=== PATIENT | female | born 1980 | race Caucasian/White ===

== ENCOUNTER 2016-08-21 19:24 | Inpatient (IN) | payer MEDICAID ==
[~2016-08-21] VITALS: Ht 148.6 cm; Wt 68.2 kg
[~2016-08-21 19:24] MED LIST: FERR27TA PO; PREN1TAB12 PO
[2016-08-21] MEDS ORDERED: CARBOPROST 250 MCG INJ IM PRN (22:30)
[2016-08-21] MEDS ORDERED: METHYLERGONOVINE 0.2 MG INJ IM PRN (22:30)
[2016-08-21] MEDS ORDERED: MISOPROSTOL 200 MCG TAB PR PRN (22:30)
[2016-08-21] MEDS ORDERED: OXYTOCIN 30 UNITS/LR 500 ML IV SCH (22:30)
[2016-08-21] MEDS ORDERED: BUTORPHANOL 2 MG INJ IV PRN (22:30)
[2016-08-21] MEDS ORDERED: OXYTOCIN 30 UNITS/LR 500 ML IV PRN (22:30)
[2016-08-21] MEDS ORDERED: LIDOCAINE 1% (MPF) 30 ML INJ INJ PRN (22:30)
[2016-08-21] MEDS ORDERED: IBUPROFEN 600 MG TAB PO PRN (22:30)
--- NOTE | 2016-08-21 22:37 | TRIAGE ---
OB Triage Datetime Report Generated by CPN: 08/21/2016 22:37 Datetime: 08/21/2016 22:16 Stage of : OB Triage Vaginal Exam Dilatation (cms): 4.0 Effacement (%): 60 Station: -3 Exam By: E Miguel Membrane Status: Intact Vaginal Bleeding: Small Cervix, Consistency: Soft Cervix, Position: Posterior Presentation 'A': Cephalic Datetime: 08/21/2016 22:13 Stage of : OB Triage Monitor Mode: External Resting Tone [place]: Relaxed Heart Rate FHR Baseline Rate: 140 Monitor Mode: External US Pain Assessment Pain Scale: 5 Pain Presence: Intermittent Pain Type: Contraction Pain Location: Abdomen Datetime: 08/21/2016 20:17 Stage of : OB Triage Labor Evaluation Frequency: 10 Monitor Mode: External Quality: Moderate Pattern: Normal: <= 5 Contractions in 10 Minutes Intensity IUP (mmHg): 60 Resting Tone [place]: Relaxed Heart Rate FHR Baseline Rate: 135 Monitor Mode: External US FHR Baseline Changes: No Baseline Change Variability: Moderate 6-25 bpm Accelerations: 15X15 Decelerations: None Category: Category I Vaginal Exam Dilatation (cms): 2.0 Effacement (%): 60 Station: -3 Exam By: E Miguel Membrane Status: Intact Vaginal Bleeding: Scant Cervix, Consistency: Soft Cervix, Position: Posterior Datetime: 08/21/2016 19:40 Time of Arrival: 08/21/2016 19:10 EGA: 38.6 Arrived By: Ambulatory Arrived From: Home Chief Complaint: w/ c/o Movement: Present Contractions: Irregular Time Contractions Began: 08/21/2016 17:00 Contractions: q10 Rupture of Membranes: Denies Vaginal Bleeding: Small Vaginal Discharge: Denies Recent Sexual Intercouse: Denies Abdominal Trauma: Not Applicable Patient Complaints: Contractions Time Provider Notified: 08/21/2016 20:20 Provider Notified: Dr Malhotra Initial Plan: SVE, EFM Datetime: 08/21/2016 19:34 Maternal Assessment Level of Consciousness: Fully Conscious Headache: Denies Blurred Vision: No Nausea/Vomiting: Denies RUQ Epigastric Pain: Denies Facial Edema: None Labor Evaluation Frequency: placed Monitor Mode: External Resting Tone [place]: Relaxed Monitor Mode: External US Category: Category I Comments: [id number] Pain Assessment Pain Scale: 4 Pain Presence: Intermittent Pain Type: Cramping; Pressure Pain Location: Abdomen; Back
[2016-08-21] MEDS ORDERED: LACTATED RINGER'S 1,000 ML IV PRN (23:00)
[2016-08-21 23:24] VITALS: BP 138/75; PULSE 67; RESP 18
[2016-08-21 23:33] LABS: ADD SCAN DIFF NO
[2016-08-21 23:38] LABS: ABNORMAL IP MESSAGE 1; BASOPHILS % 0.4 % (0.0-2.0); EOSINOPHILS % 0.5 % (0.0-7.0); HEMATOCRIT 38.7 % (37.0-47.0); HEMOGLOBIN 13.1 g/dl (12.0-16.0); LYMPHOCYTES # 2.1 10^3/ul (0.8-2.9); LYMPHOCYTES % 26.9 % (15.0-51.0); MEAN CORPUSCULAR HGB CONC 33.9 g/dl (32.0-37.0); MEAN CORPUSCULAR VOLUME 88.8 fl (82.0-101.0); MEAN PLATELET VOLUME 14.6 fl (7.4-10.4); MONOCYTE # 0.8 10^3/ul (0.3-0.9); MONOCYTES % 10.9 % (0.0-11.0); NEUTROPHIL # 4.7 10^3/ul (1.6-7.5); NEUTROPHILS % 60.8 % (39.0-77.0); PLATELET COUNT 78 10^3/UL (140-415); RED BLOOD COUNT 4.36 10^6/ul (4.20-5.40); RED CELL DISTRIBUTION WIDTH 13.6 % (11.5-14.5); WHITE BLOOD COUNT 7.7 10^3/ul (4.8-10.8)
[2016-08-21 23:45] VITALS: Ht 148.6 cm; Wt 68.2 kg
[2016-08-21 23:48] LABS: INR 0.88; PROTIME 11.9 Sec (12.2-14.2); PT RATIO 0.9
[2016-08-21 23:49] LABS: PARTIAL THROMBOPLASTIN TIME 25.4 Sec (25.0-35.0)
--- NOTE | 2016-08-22 00:15 | HP ---
Date/Time of Note Date/Time of Note DATE: 08/22/16 TIME: 00:07 OB - History Hx of Present Free Text/Dictation 35y.o A1 [id number] with c/o lower abdominal pressure and vaginal spotting fo r2hr priot to triage visit VE 2cm 60%-3 menbrane intact re checked 2hr later cx [id number] admitted for expectant management Chief Complaint: vaginal spotting, pressure on lower abdomen Estimated Due Date: August 29, 2016 : 4 Para: 2 Spontaneous : 0 Therapeutic : 1 Care: Good Care Ultrasounds: Normal mid trimester US Obstetrical Complications: None Past Family/Social History * Past Medical, Surgical, Family and Obstetric Histories reviewed from chart. Blood Type: O+ Rubella: immune RPR/VDRL: Negative GBS Status: Negative HBsAG: Negative OB Admission Exam Physical Exam HEENT: WNL Heart: Rhythm Normal Lungs: Clear, Equal Abdomen: WNL Extremities: Normal Reflexes: Normal Cervical Dilatation: 4cm Effacement: 50% Station: -3 Membranes: Intact Amniotic Fluid: Unevaluable Heart Rate: 140's Accelerations: Accelerations Present Decelerations: No Decelerations Varibility: Moderate Contractions on Admission: 6-10 Minutes Apart Intensity: Moderate Last 72 hours Lab Results CBC & BMP 08/21/16 23:03 OB Assessment/Plan Reason for admission: active labor Plan: Expectant Management DOMO MARSH MD August 22, 2016 00:15
[2016-08-22] MEDS: LACTATED RINGER'S 1,000 ML IV SCH ×2 (00:40→06:24)
[2016-08-22 00:41] LABS: ADD UMIC YES; URINE BILIRUBIN (Dip) NEGATIVE (NEGATIVE); URINE BLOOD (Dip) 3+ (NEGATIVE); URINE COLOR LT. YELLOW (YELLOW); URINE GLUCOSE (Dip) NEGATIVE (NEGATIVE); URINE KETONES (Dip) NEGATIVE (NEGATIVE); URINE LEUKOCYTE ESTERASE (Dip) 3+ (NEGATIVE); URINE NITRITE (Dip) NEGATIVE (NEGATIVE); URINE TOTAL PROTEIN (Dip) 1+ (NEGATIVE); URINE UROBILINOGEN (Dip) 0.2 E.U./dL (0.1-1.0)
[2016-08-22 00:43] LABS: ALBUMIN 3.1 g/dl (3.3-4.9); ALBUMIN/GLOBULIN RATIO 1.14; BILIRUBIN,INDIRECT 0.6 mg/dl (0-1.1); BILIRUBIN,TOTAL 0.6 mg/dl (0.2-1.3); CALCIUM 8.7 mg/dl (8.4-10.2); CREATININE 0.53 mg/dl (0.44-1.00); POTASSIUM 4.3 mmol/L (3.5-5.1); TOTAL PROTEIN 5.8 g/dl (6.1-8.1)
[2016-08-22 00:55] LABS: BACTERIA,URINE MODERATE; SQUAMOUS EPITHELIAL CELL,UR MODERATE
[2016-08-22] MEDS ORDERED: AMPICILLIN 2 GM/NS (PMX) 100 ML IV ONE (01:00)
[2016-08-22] MEDS ORDERED: OXYTOCIN 30 UNITS/LR 500 ML IV SCH (01:00)
[2016-08-22 01:07] LABS: URIC ACID 5.4 mg/dl (3.1-7.9)
[2016-08-22 01:19] LABS: ADD SCAN DIFF NO
[2016-08-22 01:30] LABS: ABNORMAL IP MESSAGE 1; BASOPHILS % 0.2 % (0.0-2.0); EOSINOPHILS # 0.1 10^3/ul (0.0-0.5); EOSINOPHILS % 0.6 % (0.0-7.0); HEMATOCRIT 35.4 % (37.0-47.0); HEMOGLOBIN 12.5 g/dl (12.0-16.0); LYMPHOCYTES # 2.1 10^3/ul (0.8-2.9); MEAN CORPUSCULAR HEMOGLOBIN 31.2 pg (29.0-33.0); MEAN CORPUSCULAR HGB CONC 35.3 g/dl (32.0-37.0); MEAN CORPUSCULAR VOLUME 88.3 fl (82.0-101.0); MEAN PLATELET VOLUME 14.2 fl (7.4-10.4); MONOCYTE # 0.9 10^3/ul (0.3-0.9); MONOCYTES % 10.2 % (0.0-11.0); NEUTROPHIL # 5.5 10^3/ul (1.6-7.5); NEUTROPHILS % 64.5 % (39.0-77.0); PLATELET COUNT 78 10^3/UL (140-415); RED BLOOD COUNT 4.01 10^6/ul (4.20-5.40); RED CELL DISTRIBUTION WIDTH 13.3 % (11.5-14.5); WHITE BLOOD COUNT 8.5 10^3/ul (4.8-10.8)
[2016-08-22 03:01] LABS: PLATELET ESTIMATE PLT APPEAR DECREASED
[2016-08-22] MEDS ORDERED: AMPICILLIN 1 GM/NS (PMX) 50 ML IV SCH (05:00)
[2016-08-22] MEDS: OXYTOCIN 30 UNITS/LR 500 ML IV SCH ×4 (08:22→21:08)
--- NOTE | 2016-08-22 08:44 | LDN ---
Date/Time of Note Date/Time of Note Laboratory Tests Test 08/21/16 19:20 08/21/16 23:03 08/21/16 23:05 08/22/16 01:10 Urine Color LT. YELLOW Urine Clarity HAZY Urine pH 6.5 Urine Specific [place] <=1.005 Urine Ketones NEGATIVE Urine Nitrite NEGATIVE Urine Bilirubin NEGATIVE Urine Urobilinogen 0.2 E.U./dL Urine Leukocyte Esterase 3+ Urine Microscopic RBC 5-10/HPF Urine Microscopic WBC 10-25/HPF Urine Squamous Epithelial Cells MODERATE Urine Bacteria MODERATE Urine Yeast FEW Urine Hemoglobin 3+ Urine Glucose NEGATIVE% Urine Total Protein 1+ White Blood Count 7.710^3/ul 8.510^3/ul Red Blood Count 4.3610^6/ul 4.0110^6/ul Hemoglobin 13.1g/dl 12.5g/dl Hematocrit 38.7% 35.4% Mean Corpuscular Volume 88.8fl 88.3fl Mean Corpuscular Hemoglobin 30.0pg 31.2pg Mean Corpuscular Hemoglobin Concent 33.9g/dl 35.3g/dl Red Cell Distribution Width 13.6% 13.3% Platelet Count 7810^3/UL 7810^3/UL Mean Platelet Volume 14.6fl 14.2fl Neutrophils % 60.8% 64.5% Lymphocytes % 26.9% 24.0% Monocytes % 10.9% 10.2% Eosinophils % 0.5% 0.6% Basophils % 0.4% 0.2% Nucleated Red Blood Cells % 0.0/100WBC 0.0/100WBC Neutrophils # 4.710^3/ul 5.510^3/ul Lymphocytes # 2.110^3/ul 2.110^3/ul Monocytes # 0.810^3/ul 0.910^3/ul Eosinophils # 0.010^3/ul 0.110^3/ul Basophils # 0.010^3/ul 0.010^3/ul Nucleated Red Blood Cells # 0.010^3/ul 0.010^3/ul Prothrombin Time 11.9Sec Prothrombin Time Ratio 0.9 INR International Normalized Ratio 0.88 Activated Partial Thromboplast Time 25.4Sec Fibrinogen 227.0mg/dl Sodium Level 136mmol/L Potassium Level 4.3mmol/L Chloride Level 110mmol/L Carbon Dioxide Level 23mmol/L Anion Gap 7 Blood Urea Nitrogen 12mg/dl Creatinine 0.53mg/dl Glucose Level 74mg/dl Uric Acid 5.4mg/dl Calcium Level 8.7mg/dl Total Bilirubin 0.6mg/dl Direct Bilirubin 0.00mg/dl Indirect Bilirubin 0.6mg/dl Aspartate Amino Transf (AST/SGOT) 26IU/L Alanine Aminotransferase (ALT/SGPT) 26IU/L Alkaline Phosphatase 196IU/L Total Protein 5.8g/dl Albumin 3.1g/dl Globulin 2.70g/dl Albumin/Globulin Ratio 1.14 Platelet Estimate PLT APPEAR DECREASED Current Medications Medications (Trade) Dose Ordered Sig/Megan Route PRN Reason Start Time Stop Time Status Last Admin Dose Admin Lactated Ringer's (Lr) 1,000 ml @ 125 mls/hr Q8H IV 08/21/16 22:24 08/22/16 00:40 Butorphanol Tartrate (Stadol) 2 mg Q2H PRN IV PAIN 08/21/16 22:30 08/22/16 06:09 Lidocaine 30 ml 30 ml ONCE PRN INJ EPISIOTOMY/TEARING 08/21/16 22:30 Oxytocin/Lactated Ringer's 500 ml @ 125 mls/hr ONCE -MAY REPEAT X1 IV 08/21/16 22:30 08/22/16 08:22 Oxytocin/Lactated Ringer's 500 ml @ 125 mls/hr ONCE IV 08/21/16 22:30 Ibuprofen 600 mg 600 mg ONCE PRN PO Mild Pain (Pain Score 1-3) 08/21/16 22:30 Lactated Ringer's 1,000 ml @ 2,000 mls/hr Q30M PRN IV PRE-EPIDURAL BOLUS 08/21/16 23:00 08/21/16 23:38 Oxytocin/Lactated Ringer's 500 ml @ 0 mls/hr ONCE PRN IV For Hemorrhage Management 08/21/16 22:30 Methylergonovine Maleate (Methergine) 0.2 mg ONCE PRN IM VAGINAL BLEEDING 08/21/16 22:30 Carboprost Tromethamine (Hemabate) 250 mcg ONCE PRN IM VAGINAL BLEEDING 08/21/16 22:30 Misoprostol 1000 mcg 1,000 mcg ONCE PRN SD VAGINAL BLEEDING 08/21/16 22:30 Oxytocin/Lactated Ringer's 500 ml @ 0 mls/hr Q0M IV 08/22/16 01:00 08/22/16 01:00 Ampicillin 100 ml @ 100 mls/hr ONCE ONCE IV 08/22/16 01:00 08/22/16 01:59 DC 08/22/16 00:57 Ampicillin (Ampicillin 1 Gm/ NS (Pmx)) 50 ml @ 100 mls/hr Q4H IV 08/22/16 05:00 08/22/16 04:39 DATE: 08/22/16 TIME: 08:40 Delivery Summary delivery at 7.56 AM Weeks of Gestation 39 weeks Placenta Delivered: Spontaneously Meconium: none Episiotomy: No Perineal laceration: 2 Anesthesia type: Local Estimated blood loss: 250 Sponge & Needle done & correct: Yes All needle counts correct: Yes Any foreign bodies felt in the: No Problems: Infant Delivery Information Sex Sex: male Apgars 1 Minute: 9 5 Minute: 9 Suctioning Nose & mouth suctioned at [place]: Yes Delee suction performed: No Umbilical Cord Umbilical cord with: 3 Vessels Cord presentations: nuchal cord Nuchal cord present X: 1 Cord Blood was obtained: Yes Mother & Baby Disposition Disposition Mom & Baby to Maternity; Good: Yes Mom transferred to: Med/Surg Baby to NICU: No KASIE TUCKER MD August 22, 2016 08:44
[2016-08-22 10:30] VITALS: BP 126/58; PULSE 69; RESP 16
[2016-08-22] MEDS ORDERED: WITCH HAZEL/GLYCERIN PAD PR PRN (10:30)
[2016-08-22] MEDS ORDERED: LANOLIN 7 GM TUBE TOP PRN (10:30)
[2016-08-22] MEDS ORDERED: ONDANSETRON 4 MG INJ IV PRN (10:30)
[2016-08-22] MEDS ORDERED: ACETAMINOPHEN 325 MG TAB PO PRN (10:30)
[2016-08-22] MEDS ORDERED: OXYCODONE/ASPIRIN (4.88/325) TAB PO PRN ×2 (10:30)
[2016-08-22] MEDS ORDERED: DIBUCAINE 1% 30 GM OINT PR PRN (10:30)
[2016-08-22] MEDS ORDERED: ACETAMINOPHEN/CODEINE #3 TAB PO PRN ×2 (10:30)
[2016-08-22] MEDS ORDERED: BENZOCAINE 20% 56 ML SPRAY TOP PRN (10:30)
[2016-08-22 12:56] VITALS: BP 138/75; PULSE 63; RESP 14
[2016-08-22 16:25] VITALS: BP 118/62; PULSE 64; RESP 16
[2016-08-22] MEDS: IBUPROFEN 600 MG TAB PO SCH ×3 (18:00→23:53)
[2016-08-22] MEDS ORDERED: METHYLERGONOVINE 0.2 MG INJ IM PRN (18:30)
[2016-08-22] MEDS ORDERED: CARBOPROST 250 MCG INJ IM ONE (18:30)
[2016-08-22 19:35] VITALS: BP 135/66; PULSE 82; RESP 17
[2016-08-22] MEDS: SENNA/DOCUSATE NA (8.6MG/50MG) TAB PO SCH (21:07)
[2016-08-22 23:53] VITALS: BP 132/71; PULSE 59; RESP 19
[2016-08-23 04:00] VITALS: BP 115/65; PULSE 65; RESP 17
[2016-08-23] MEDS: IBUPROFEN 600 MG TAB PO SCH ×3 (05:38→17:39)
[2016-08-23 08:00] VITALS: BP 115/73; PULSE 58; RESP 18
[2016-08-23 08:20] LABS: ADD SCAN DIFF NO
[2016-08-23 08:28] LABS: ABNORMAL IP MESSAGE 1; BASOPHILS % 0.2 % (0.0-2.0); EOSINOPHILS % 0.5 % (0.0-7.0); HEMATOCRIT 30.1 % (37.0-47.0); HEMOGLOBIN 10.4 g/dl (12.0-16.0); LYMPHOCYTES # 1.6 10^3/ul (0.8-2.9); LYMPHOCYTES % 19.3 % (15.0-51.0); MEAN CORPUSCULAR HEMOGLOBIN 30.6 pg (29.0-33.0); MEAN CORPUSCULAR HGB CONC 34.6 g/dl (32.0-37.0); MEAN CORPUSCULAR VOLUME 88.5 fl (82.0-101.0); MEAN PLATELET VOLUME 14.5 fl (7.4-10.4); MONOCYTE # 0.7 10^3/ul (0.3-0.9); MONOCYTES % 8.1 % (0.0-11.0); NEUTROPHILS % 71.3 % (39.0-77.0); RED CELL DISTRIBUTION WIDTH 13.3 % (11.5-14.5); WHITE BLOOD COUNT 8.4 10^3/ul (4.8-10.8)
[2016-08-23 08:38] LABS: PLATELET COUNT 68 10^3/UL (140-415)
[2016-08-23] MEDS: SENNA/DOCUSATE NA (8.6MG/50MG) TAB PO SCH ×2 (08:59→21:00)
[2016-08-23 16:00] VITALS: BP 121/73; PULSE 73; RESP 18
[2016-08-23 19:45] VITALS: BP 136/76; PULSE 72; RESP 18
--- NOTE | 2016-08-24 01:18 | QN ---
Documentation Comment ppd 1 afebrile abd.soft uterus firm lochia normal ext normal SANJANA RITCHIE MD August 24, 2016 01:18
[2016-08-24 04:10] VITALS: BP 126/61; PULSE 67; RESP 18
[2016-08-24] MEDS: IBUPROFEN 600 MG TAB PO SCH ×3 (05:29→11:30)
[2016-08-24 08:00] VITALS: BP 124/58; PULSE 63; RESP 18
[2016-08-24] MEDS: SENNA/DOCUSATE NA (8.6MG/50MG) TAB PO SCH (08:42)
[2016-08-24] MEDS ORDERED: MEASLES,MUMPS,RUBELLA VACCINE INJ SC* ONE (09:00)
[2016-08-24 13:43] LABS: ADD SCAN DIFF NO
[2016-08-24 13:47] LABS: ABNORMAL IP MESSAGE 1; BASOPHILS % 0.2 % (0.0-2.0); EOSINOPHILS # 0.1 10^3/ul (0.0-0.5); EOSINOPHILS % 0.8 % (0.0-7.0); HEMATOCRIT 30.1 % (37.0-47.0); HEMOGLOBIN 10.3 g/dl (12.0-16.0); LYMPHOCYTES # 1.8 10^3/ul (0.8-2.9); LYMPHOCYTES % 19.9 % (15.0-51.0); MEAN CORPUSCULAR HEMOGLOBIN 30.9 pg (29.0-33.0); MEAN CORPUSCULAR HGB CONC 34.2 g/dl (32.0-37.0); MEAN CORPUSCULAR VOLUME 90.4 fl (82.0-101.0); MEAN PLATELET VOLUME 13.8 fl (7.4-10.4); MONOCYTE # 0.7 10^3/ul (0.3-0.9); MONOCYTES % 7.7 % (0.0-11.0); NEUTROPHIL # 6.4 10^3/ul (1.6-7.5); NEUTROPHILS % 70.8 % (39.0-77.0); RED BLOOD COUNT 3.33 10^6/ul (4.20-5.40); RED CELL DISTRIBUTION WIDTH 13.9 % (11.5-14.5)
--- NOTE | 2016-08-24 13:54 | PN ---
Date/Time of Note Date/Time of Note DATE: 08/24/16 TIME: 13:53 OB Subjective Subjective Subjective Patient without complaints. Inquiring about platelets. OB Objective Objective Objective Gen: NAD Abd: FF OB Assessment/Plan Reason for admission: active labor Other Assessment: s/p Other plan: PPD2 -recheck platelets -discharge home pending results LUIS CARLOS CASTELLANOS August 24, 2016 13:54
[2016-08-24 14:04] LABS: PLATELET COUNT 89 10^3/UL (140-415)
[2016-08-24 16:00] VITALS: BP 132/82; PULSE 65; RESP 18
== END 2016-08-24 17:48 | disposition home or self-care (01) | DRG 775 ==
LOC: OBT 19:24 → L-D 19:25 → OBT 22:16 → L-D 08-22 02:32 → PP1 08-22 09:58
PROVIDERS: ADMIT Obstetrics & Gynecology; ATTEND Obstetrics & Gynecology
PROC: 10E0XZZ Delivery of Products of Conception, External Approach (ICD-10-PCS; principal; 2016-08-22)
DX: O80 Encounter for full-term uncomplicated delivery (principal); Z37.0 Single live birth; Z3A.39 39 weeks gestation of pregnancy
CPT/HCPCS: 80053; 81001; 81003; 84560; 85025; 85384; 85610; 85730; 86592; 86900; 86901; G0463; J0290; J2590; J7120